=== PATIENT | female | born 1975 | race Two or more races ===

== ENCOUNTER 2020-02-01 07:54 | Outpatient (CLI) | payer OTHER | END 2020-02-01 08:04 | disposition home or self-care (01) | LOC: SONOGRAMA 07:54 | PROVIDERS: ATTEND Pathology Anatomic Pathology | DX: E04.2 Nontoxic multinodular goiter (principal) ==

== ENCOUNTER 2023-06-03 13:59 | Outpatient (CLI) | payer OTHER | END 2023-06-03 14:10 | disposition home or self-care (01) | LOC: SONOGRAMA 13:59 | PROVIDERS: ATTEND Internal Medicine Endocrinology, Diabetes & Metabolism | DX: E04.1 Nontoxic single thyroid nodule (principal) ==

== ENCOUNTER 2024-07-22 13:52 | Emergency (ER) | payer OTHER ==
[~2024-07-22] VITALS: Ht 152.4 cm; Wt 70.3 kg
[2024-07-22 18:00] LABS: HEMATOCRIT 41.3 % (36.0-45.00); HEMOGLOBIN 14.1 g/dL (12.0-15.00); MEAN CELL VOLUME 92.1 fL (80.00-100.00); MEAN CORPUSCULAR HEMOGLOBIN 31.5 pg (27.00-32.0); MEAN CORPUSCULAR HGB CONC 34.2 g/dl (32.0-36.0); PLATELET COUNT 252 K/uL (150-450); RED BLOOD COUNT 4.49 M/uL (4.00-6.00)
[2024-07-22 18:22] LABS: ALBUMIN 3.5 gm/dL (3.4-5.0); BILIRUBIN TOTAL 0.34 mg/dL (0.3-1.2); CALCIUM 9.6 mg/dL (8.5-10.1); CREATININE SERUM 1.25 mg/dL (0.55-1.02); GFR 45.74; GLOBULINA 4.5 G/DL (2.4-3.5); POTASSIUM 3.85 mEq/L (3.5-5.1)
[2024-07-22 19:00] LABS: PH,URINE 5.5 (5.0-8.0); URINE APPEARANCE Cloudy; URINE BILIRRUBIN Negative (NEGATIVE); URINE BLOOD Large; URINE COLOR Yellow; URINE GLUCOSE Negative (NEGATIVE); URINE KETONE Negative (NEGATIVE); URINE LEUKOCYTE Small; URINE NITRATE Negative; URINE PROTEIN 30 (NEGATIVE)
[2024-07-22 19:04] LABS: URINE BACTERIA 436.9 uL (0.0-1933); URINE EPITHELIAL CELLS 41.9 uL (0.0-38.8); URINE RBC 2519.9 uL (0.0-20.8); URINE WBC 129.6 uL (0.0-23.2)
== END 2024-07-22 20:10 ==
LOC: ER 13:55
PROVIDERS: Preventive Medicine Public Health & General Preventive Medicine
DX: N39.0 Urinary tract infection, site not specified (principal); M54.50 Low back pain, unspecified; R50.9 Fever, unspecified

== ENCOUNTER → 2024-07-28 10:08 | Outpatient (CLI) | payer OTHER ==
[2024-07-28 10:42] LABS: PH,URINE 5.5 (5.0-8.0); URINE APPEARANCE Error; URINE BILIRRUBIN Negative (NEGATIVE); URINE BLOOD Large; URINE COLOR Yellow; URINE GLUCOSE Negative (NEGATIVE); URINE KETONE 15 (NEGATIVE); URINE LEUKOCYTE Moderate; URINE NITRATE Negative; URINE PROTEIN Trace (NEGATIVE); URINE UROBILINOGEN 0.2 E.U./dl
[2024-07-28 10:44] LABS: URINE BACTERIA 2968.1 uL (0.0-1933); URINE RBC 24.7 uL (0.0-20.8); URINE WBC 258.3 uL (0.0-23.2)
[2024-07-28 11:31] LABS: URINE CAST 0.14 uL (0.0-1.40); URINE EPITHELIAL CELLS > 201.7 uL (0.0-38.8)
[2024-07-28 11:33] LABS: URINE CRYSTALS FEW /HPF
[2024-07-28 11:42] LABS: CALCIUM 9.7 mg/dL (8.5-10.1); CREATININE SERUM 0.84 mg/dL (0.55-1.02); GFR 72.36; POTASSIUM 4.01 mEq/L (3.5-5.1)
[2024-07-28 12:03] LABS: CREATINE CLEARANCE 77.5 ML/MIN (97-137); CREATININE SERUM 0.84 mg/dL (0.6-1.0)
== END | disposition home or self-care (01) ==
LOC: LAB 10:08
PROVIDERS: ATTEND Family Medicine
DX: R73.01 Impaired fasting glucose (principal); R10.9 Unspecified abdominal pain

== ENCOUNTER 2024-07-28 10:55 | Outpatient (CLI) | payer OTHER | END 2024-07-28 10:58 | disposition home or self-care (01) | LOC: SONOGRAMA 10:55 | PROVIDERS: ATTEND Family Medicine | DX: R31.21 Asymptomatic microscopic hematuria (principal) ==

== ENCOUNTER 2024-08-12 09:30 | Outpatient (CLI) | payer OTHER ==
[2024-08-12 11:20] LABS: HEMATOCRIT 43.3 % (36.0-45.00); HEMOGLOBIN 14.6 g/dL (12.0-15.00); MEAN CELL VOLUME 92.3 fL (80.00-100.00); MEAN CORPUSCULAR HGB CONC 33.6 g/dl (32.0-36.0); PLATELET COUNT 274 K/uL (150-450); RED BLOOD COUNT 4.69 M/uL (4.00-6.00); RED CELL DISTRIBUTION WIDTH 12.9 % (11.5-14.5)
[2024-08-12 11:38] LABS: INR 0.97; PROTHROMBIN TIME 10.6 SECONDS (9.0-11.5)
[2024-08-15 08:08] LABS: hav igm Negative (Negative); hcv Non Reactive (Non Reactive); hep b c Negative (Negative); hep b s ag Negative (Negative)
== END 2024-08-12 10:31 | disposition home or self-care (01) ==
LOC: LAB 09:30
DX: D68.8 Other specified coagulation defects (principal); Z80.0 Family history of malignant neoplasm of digestive organs

== ENCOUNTER 2025-01-20 07:49 | Outpatient (CLI) | payer OTHER ==
[2025-01-20 08:49] LABS: BASO % 1.0 % (0.1-1.2); EOS # 0.27 (0.04-0.54); EOS % 5.5 % (0.7-7.0); LYMPH # 2.06 (1.18-3.74); LYMPH % 41.6 % (19.3-53.1); MEAN PLATELET VOLUME 9.10 fl (9.4-12.4); MONO # 0.41 (0.24-0.82); MONO % 8.3 % (4.7-12.5); NEUT # 2.15 (1.56-6.13); NEUT % 43.4 % (34.0-71.1); RED CELL DISTRIBUTION WIDTH 11.9 % (11.6-14.4)
[2025-01-20 08:54] LABS: URINE APPEARANCE Cloudy; URINE BILIRRUBIN Negative (NEGATIVE); URINE BLOOD Large; URINE COLOR Yellow; URINE GLUCOSE Negative (NEGATIVE); URINE KETONE Negative (NEGATIVE); URINE LEUKOCYTE Moderate; URINE NITRATE Negative; URINE PROTEIN Trace (NEGATIVE); URINE UROBILINOGEN 0.2 E.U./dl
[2025-01-20 08:59] LABS: URINE BACTERIA 5207.8 uL (0.0-1933); URINE EPITHELIAL CELLS 118.3 uL (0.0-38.8); URINE RBC 8.3 uL (0.0-20.8); URINE WBC 158.4 uL (0.0-23.2)
[2025-01-20 09:33] LABS: URINE CAST 0.00 uL (0.0-1.40)
[2025-01-20 09:35] LABS: URINE YEAST NEGATIVE /hpf
[2025-01-20 09:40] LABS: ALT/SGPT 26.0 U/L (12-78); AST/SGOT 24.0 U/L (15-37); BILIRUBIN TOTAL 0.42 mg/dL (0.3-1.2); BUN CREA RATIO 22.0 (7.0-25.0); CHOL HDL RATIO 2.4 (0-5.0); CREATININE SERUM 0.81 mg/dL (0.55-1.02); FREE TRIODOTIRONINE 2.68 pg/ml (2.18-3.98); GFR 75.15; GLOBULINA 3.5 G/DL (2.4-3.5); GLUCOSE FASTING 91.0 mg/dL (65-100); HDL 87.0 mg/dl (40-60); LDL 106.0 mg/dl (0-130); OSMOLALITY SERUM 286.0 MOSM/KG (275-295); T4 FREE 0.97 NG/ML (0.76-1.46); T4 TOTAL 8.31 UG/DL (4.8-13.9); TSH 2.05 uIU/mL (0.358-3.74); VLDL 18.0 (0-39)
== END 2025-01-20 08:07 | disposition home or self-care (01) ==
LOC: LAB 07:49
DX: D64.9 Anemia, unspecified (principal); E78.9 Disorder of lipoprotein metabolism, unspecified; E03.9 Hypothyroidism, unspecified; E11.9 Type 2 diabetes mellitus without complications; N39.0 Urinary tract infection, site not specified; R53.81 Other malaise; E55.9 Vitamin D deficiency, unspecified; K76.9 Liver disease, unspecified